=== PATIENT | male | born 1970 | race Caucasian/White ===

== ENCOUNTER 2017-02-04 13:52 | Emergency (ER) | payer OTHER ==
--- NOTE | ~2017-02-04 | CR142 ---
[facility]. [facility] A Service of [facility] & [facility] / [facility] RADIOLOGY TEXT RESULTS PATIENT: ANTONIETTA SHOEMAKER JR LOCATION: SED : 70 UNIT #: [id number] AGE: [address]: Breann West APRN SEX: M ORDER DR: [id number] [place] [id number] E MR#: [id number] Acc #: [id number] NAME: ANTONIETTA SHOEMAKER JR : 1970 SEX: M STUDY DATE/TIME: 02/04/2017 14:12 UNIT: SED ROOM: STUDY DESCRIPTION: CR Hand Min 3 Views Rt Attending Physician: Breann West A.P.R.N. Ordering Physician: Breann Ovalles A.P.R.N. Primary Care Physician: Amalia Bernal A.P.R.N. MEDICAL IMAGING REPORT This report is preliminary unless electronic signature is present. EXAM Right hand radiograph INDICATIONS Thumb hyperflexion. Trauma. FINDINGS 3 views of the right hand without comparison. There is no acute fracture or dislocation. Alignment is anatomic. No foreign body. IMPRESSION No acute findings. Dictated by... Dewey Winston M.D. THIS IS AN ELECTRONICALLY VERIFIED REPORT Dewey Winston M.D. at 02/05/2017 2:13 PM Onesimo/lavell TD: 02/04/2017 20:15 JOB #: [id number] MEDICAL IMAGING REPORT Page 1 of 1
[~2017-02-04 13:52] MED LIST: ASPIRIN; AUGMENTIN PO; BACITRACIN15 GM TOP; BACTRIM DS TABL1 TA2 PO; CLEOCIN HCL300 M1 PO; EC-NAPROSYN500 MG PO; EFFEXOR; HCTZ; KEFLEX500 M1 PO; NIASPAN; NO MEDICATIONS; NORCO 7.5-3251 EACH PO; NOSE SPRAY; PREVACID; TOPROL XL; TRICOR; WELLBUTRIN SR
== END 2017-02-04 14:38 | disposition home or self-care (01) ==
LOC: SED 13:52
DX: S63.621A Sprain of interphalangeal joint of right thumb, initial encounter (principal); G56.03 Carpal tunnel syndrome, bilateral upper limbs; X58.XXXA Exposure to other specified factors, initial encounter; Y92.009 Unspecified place in unspecified non-institutional (private) residence as the place of occurrence of the external cause
CPT/HCPCS: 29125; 73130; 99283